=== PATIENT | female | born 1945 | race Caucasian/White ===

== ENCOUNTER 2022-02-21 05:02 | Inpatient (IN) ==
[2022-02-21] MEDS ORDERED: Ondansetron 4 MG/2 ML VIAL IVP PRN (07:09)
[2022-02-21] MEDS ORDERED: Acetaminophen 325 MG TABLET PO PRN (07:09)
[2022-02-21] MEDS ORDERED: Naloxone 0.4 MG/ML INJ IVP PRN (07:09)
[2022-02-21] MEDS ORDERED: *HR* Dextrose 50 % in Water (Syg) 50 ML SYRINGE IVP PRN (07:12)
[2022-02-21] MEDS ORDERED: D5% in Water 1,000 ML IVC PRN (07:12)
[2022-02-21] MEDS ORDERED: Dextrose 4 GM Chewable Tablets PO PRN ×2 (07:12)
[2022-02-21] MEDS: *HR* OxyCODONE Immed Rel 5 MG TABLET PO PRN ×3 (07:52→20:55)
[2022-02-21] MEDS ORDERED: Isovue-370 500 ML BOTTLE IVP ONE ×2 (07:54→13:44)
[2022-02-21] MEDS: Insulin LISPRO 300 UNITS/3 ML VIAL SUBQ SCH ×2 (12:57→18:16)
[2022-02-21] MEDS ORDERED: Gadolinium Contrast Agent (WT Based) IV PRN ×2 (13:47→16:40)
[2022-02-21] MEDS: *HR* Heparin 5,000 UNIT/ML VIAL SQ SCH ×2 (14:02→20:56)
[2022-02-22] MEDS: Insulin LISPRO 300 UNITS/3 ML VIAL SUBQ SCH ×4 (00:05→18:18)
[2022-02-22] MEDS: *HR* OxyCODONE Immed Rel 5 MG TABLET PO PRN ×2 (04:40→17:22)
[2022-02-22 05:52] LABS: Hematocrit 42.1 % (35.3-44.9); Hemoglobin 14.1 g/dL (11.5-15.4); Mean Corpuscular HGB Conc 33.5 g/dL (31.6-35.5); Mean Corpuscular Hemoglobin 29.3 pg (28.0-33.3); Mean Corpuscular Volume 87.5 fL (83.0-100.0); Mean Platelet Volume 10.3 fL (9.4-12.4); Red Blood Count 4.81 M/mcL (3.82-4.97)
[2022-02-22 05:54] LABS: Immature Platelets 4.8 % (1.1-6.1); Red Cell Distribution Width 14.3 % (11.5-14.5)
[2022-02-22] MEDS: *HR* Heparin 5,000 UNIT/ML VIAL SQ SCH (05:59)
[2022-02-22] MEDS ORDERED: Metoprolol XL (24 HR) Succ 50 MG TAB.ER.24H PO SCH (06:00)
[2022-02-22] MEDS ORDERED: Multivit/Ca/Min/Fe/FA 1 TAB TABLET PO SCH (06:00)
[2022-02-22 06:36] LABS: BUN/Creatinine Ratio 13 (6-26); Blood Urea Nitrogen 13 mg/dL (8-23); Calcium 9.8 mg/dL (8.6-10.3); Carbon Dioxide 25 mEq/L (23-29); Chloride 96 mEq/L (98-107); Glucose 152 mg/dL (70-105); Magnesium 1.7 mg/dL (1.6-2.6); Osmolality,Calculated 279 (280-300); Phosphorous 3.8 mg/dL (2.7-4.5); Potassium 3.9 mEq/L (3.5-5.1); Sodium 133 mEq/L (136-145); eGFR For African Americans > 60 (> 60); eGFR For Non-African Americans 56 (> 60)
[2022-02-22] MEDS ORDERED: *HR* Propofol 200 MG/20 ML VIAL IVP ONE (06:39)
[2022-02-22] MEDS ORDERED: *HR* FentaNYL (PF) 100 MCG/2 ML VIAL ONE (06:39)
[2022-02-22] MEDS ORDERED: Lidocaine -MPF 2% 5 ML VIAL ONE (06:40)
[2022-02-22] MEDS ORDERED: Ketamine HCL *QUVA* 50mg (1mL) SYRINGE ONE (06:53)
[2022-02-22] MEDS ORDERED: *HR* Midazolam HCl 2 MG/2 ML VIAL ONE (06:53)
[2022-02-22] MEDS ORDERED: *HR* Succinylcholine 200 MG/10 ML VIAL IVP ONE (06:54)
[2022-02-22] MEDS ORDERED: Famotidine 20 MG/2 ML VIAL IVP ONE (07:01)
[2022-02-22] MEDS ORDERED: CeFAZolin Syr 2,000MG/20 ML 2,000 MG/20 ML SYRINGE IVPB ONE (07:02)
[2022-02-22] MEDS ORDERED: Ringers Solution, Lactated 1,000 ML IVC SCH (07:15)
[2022-02-22] MEDS ORDERED: Tranexamic Acid 1,000 MG/10 ML VIAL ONE (07:48)
[2022-02-22] MEDS ORDERED: Ondansetron 4 MG/2 ML VIAL ONE (07:55)
[2022-02-22] MEDS ORDERED: Sugammadex Sodium 200 MG/2 ML VIAL IV ONE (08:27)
[2022-02-22] MEDS ORDERED: *HR* HYDROMORPHONE 2 MG/ML VIAL ONE (08:56)
[2022-02-22] MEDS ORDERED: Ondansetron 4 MG/2 ML VIAL IVP PRN ×2 (10:02→10:48)
[2022-02-22] MEDS ORDERED: Dextrose 4 GM Chewable Tablets PO PRN ×2 (10:48)
[2022-02-22] MEDS ORDERED: D5% in Water 1,000 ML IVC PRN (10:48)
[2022-02-22] MEDS ORDERED: *HR* Dextrose 50 % in Water (Syg) 50 ML SYRINGE IVP PRN (10:48)
[2022-02-22] MEDS ORDERED: Naloxone 0.4 MG/ML INJ IVP PRN (10:48)
[2022-02-22 15:17] LABS: INR 1.3; Prothrombin Time 14.3 Seconds (9.4-12.1)
[2022-02-22] MEDS: CeFAZolin 2 GM/100 ML BAG IVPB SCH (16:32)
[2022-02-23] MEDS: CeFAZolin 2 GM/100 ML BAG IVPB SCH (00:44)
[2022-02-23 04:16] LABS: Basophils % 0.3 %; Eosinophils % 0.3 %; Hematocrit 33.2 % (35.3-44.9); Immature Granulocytes % 0.3 % (0-4); Lymphocytes % 14.2 %; Mean Corpuscular HGB Conc 34.6 g/dL (31.6-35.5); Mean Corpuscular Hemoglobin 30.4 pg (28.0-33.3); Mean Corpuscular Volume 87.8 fL (83.0-100.0); Mean Platelet Volume 10.4 fL (9.4-12.4); Monocytes # 0.8 K/mcL (0.0-1.3); Monocytes % 11.1 %; Neutrophils # 5.4 K/mcL (1.6-8.9); Platelet Count 135 K/mcL (140-400); Red Blood Count 3.78 M/mcL (3.82-4.97); Red Cell Distribution Width 14.1 % (11.5-14.5); Segmented Neutrophils % 73.8 %; White Blood Count 7.3 K/mcL (4.3-11.1)
[2022-02-23 04:19] LABS: Hemoglobin 11.5 g/dL (11.5-15.4)
[2022-02-23 04:35] LABS: BUN/Creatinine Ratio 13 (6-26); Blood Urea Nitrogen 12 mg/dL (8-23); Calcium 8.9 mg/dL (8.6-10.3); Carbon Dioxide 24 mEq/L (23-29); Chloride 98 mEq/L (98-107); Glucose 185 mg/dL (70-105); Osmolality,Calculated 277 (280-300); Sodium 131 mEq/L (136-145); eGFR For African Americans > 60 (> 60); eGFR For Non-African Americans 57 (> 60)
[2022-02-23] MEDS: *HR* OxyCODONE Immed Rel 5 MG TABLET PO PRN ×3 (06:53→18:49)
[2022-02-23] MEDS: Metoprolol XL (24 HR) Succ 50 MG TAB.ER.24H PO SCH (07:54)
[2022-02-23] MEDS: Multivit/Ca/Min/Fe/FA 1 TAB TABLET PO SCH (07:54)
[2022-02-23] MEDS: Insulin LISPRO 300 UNITS/3 ML VIAL SUBQ SCH ×3 (07:55→16:47)
[2022-02-24 05:31] LABS: Mean Corpuscular Hemoglobin 29.8 pg (28.0-33.3)
[2022-02-24 05:33] LABS: Hematocrit 32.9 % (35.3-44.9); Hemoglobin 10.8 g/dL (11.5-15.4); Immature Platelets 4.6 % (1.1-6.1); Mean Corpuscular HGB Conc 32.8 g/dL (31.6-35.5); Mean Corpuscular Volume 90.6 fL (83.0-100.0); Mean Platelet Volume 10.7 fL (9.4-12.4); Red Blood Count 3.63 M/mcL (3.82-4.97); White Blood Count 5.7 K/mcL (4.3-11.1)
[2022-02-24 05:40] LABS: BUN/Creatinine Ratio 17 (6-26); Blood Urea Nitrogen 14 mg/dL (8-23); Calcium 9.1 mg/dL (8.6-10.3); Carbon Dioxide 25 mEq/L (23-29); Chloride 100 mEq/L (98-107); Glucose 167 mg/dL (70-105); Osmolality,Calculated 278 (280-300); Potassium 4.5 mEq/L (3.5-5.1); Sodium 132 mEq/L (136-145); eGFR For African Americans > 60 (> 60); eGFR For Non-African Americans > 60 (> 60)
[2022-02-24] MEDS: *HR* OxyCODONE Immed Rel 5 MG TABLET PO PRN ×2 (06:38→13:27)
[2022-02-24] MEDS: Insulin LISPRO 300 UNITS/3 ML VIAL SUBQ SCH ×3 (08:29→16:40)
[2022-02-24] MEDS: Metoprolol XL (24 HR) Succ 50 MG TAB.ER.24H PO SCH (08:32)
[2022-02-24] MEDS: Multivit/Ca/Min/Fe/FA 1 TAB TABLET PO SCH (08:32)
[2022-02-24] MEDS: Sennosides 8.6 MG TABLET PO SCH (21:40)
[2022-02-25] MEDS: *HR* OxyCODONE Immed Rel 5 MG TABLET PO PRN ×3 (05:40→21:06)
[2022-02-25] MEDS: Insulin LISPRO 300 UNITS/3 ML VIAL SUBQ SCH ×3 (08:24→17:55)
[2022-02-25] MEDS: Multivit/Ca/Min/Fe/FA 1 TAB TABLET PO SCH (10:25)
[2022-02-25] MEDS: Metoprolol XL (24 HR) Succ 50 MG TAB.ER.24H PO SCH (10:26)
[2022-02-25 15:12] LABS: Influenza A PCR Negative (Negative); Influenza B PCR Negative (Negative); Resp. Syncytial Virus PCR Negative (Negative)
[2022-02-25 15:36] LABS: SARS-CoV-2 by PCR (In House) Negative (Negative)
[2022-02-25] MEDS: Sennosides 8.6 MG TABLET PO SCH (21:06)
[2022-02-26] MEDS: *HR* OxyCODONE Immed Rel 5 MG TABLET PO PRN (04:57)
[2022-02-26] MEDS: Metoprolol XL (24 HR) Succ 50 MG TAB.ER.24H PO SCH (09:25)
[2022-02-26] MEDS: Multivit/Ca/Min/Fe/FA 1 TAB TABLET PO SCH (09:25)
[2022-02-26] MEDS: Insulin LISPRO 300 UNITS/3 ML VIAL SUBQ SCH ×2 (09:26→12:40)
[2022-02-26 10:57] VITALS: BP 125/76; PULSE 84; TEMP 97.8; O2SAT 96
== END 2022-02-26 14:30 | DRG 522 ==
LOC: 4WAOSI → SUATTDRO 08:55
PROVIDERS: ADMIT Student in an Organized Health Care Education/Training Program; ATTEND Internal Medicine